=== PATIENT | male | born 1990 | race American Indian/Alaskan Native ===

== ENCOUNTER 2021-07-11 14:30 | Emergency (ER) | payer SELFPAY ==
--- NOTE | 2021-07-11 15:51 | Emergency Department Report ---
ED Chest Pain HPI - General Chief Complaint: Chest Pain Stated Complaint: CHEST PAIN Time Seen by Provider: 07/11/21 15:25 Source: patient Mode of arrival: Ambulatory Limitations: No Limitations - History of Present Illness Initial Comments: 31-year-old -Citizen Of The [place] obese male with a past medical history of hypertension presents to the ER today with complaints of substernal chest pain. 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 He described as a burning pain which has been constant. He reports since admission nausea and shortness of breath and productive cough. He states that he notices that when he walks pain seems to get worse, but seems to improve when he sits down or lay down. He reports no lower extremity swelling or calf pain. He denies any fever or chills. He denies any illicit drug use or alcohol abuse. He states that he smokes tobacco off and on. He denies any history of heart disease or known history of lung disease. He states that his grandma of an NE at 65 but she did have kidney disease. He denies any other family history of heart disease. He states that he has not had a Covid vaccine. MD Complaint: chest pain - Related Data Previous Rx's Medication Instructions Recorded Last Taken Type Famotidine [Pepcid] 20 mg PO BID #30 tablet 07/11/21 Unknown Rx Ondansetron [Zofran Odt] 4 mg PO Q8HR PRN #12 tab.rapdis 07/11/21 Unknown Rx Allergies Allergy/AdvReac Type Severity Reaction Status Date / Time No Known Allergies Allergy Verified 07/11/21 14:45 Heart Score - HEART Score History: Slightly suspicious EKG: Normal Age: < 45 Risk factors: > 3 risk factors or hx of atherosclerotic disease (Obesity, hypertension, tobacco use, grandma with heart disease (NE 65)) Troponin: < normal limit HEART Score: 2 - EKG Read Time Time EKG Completed: 14:47 EKG Read Time: 14:52 - Critical Actions Critical Actions: 0-3 pts:0.9-1.7%risk of adverse cardiac event.Candidate for discharge ED Review of Systems ROS: Stated complaint: CHEST PAIN Other details as noted in HPI Comment: All other systems reviewed and negative Constitutional: denies: chills, fever Respiratory: cough, shortness of breath. denies: wheezing Cardiovascular: chest pain Gastrointestinal: nausea ED Past Medical Hx - Past Medical History Previous Medical History?: Yes Hx Hypertension: Yes - Surgical History Past Surgical History?: No - Medications Home Medications: Home Medications Medication Instructions Recorded Confirmed Last Taken Type Famotidine [Pepcid] 20 mg PO BID #30 tablet 07/11/21 Unknown Rx Ondansetron [Zofran Odt] 4 mg PO Q8HR PRN #12 tab.rapdis 07/11/21 Unknown Rx ED Physical Exam - General Limitations: No Limitations General appearance: alert, in no apparent distress, obese - Head Head exam: Present: atraumatic, normocephalic, normal inspection - Neck Neck exam: Present: normal inspection, full ROM. Absent: meningismus - Respiratory Respiratory exam: Present: normal lung sounds bilaterally, chest wall tenderness (mild left parasternal area). Absent: respiratory distress, wheezes, rales, rhonchi - Cardiovascular Cardiovascular Exam: Present: regular rate, normal rhythm, normal heart sounds. Absent: bradycardia, tachycardia, systolic murmur, diastolic murmur - GI/Abdominal GI/Abdominal exam: Present: soft. Absent: distended, tenderness, guarding, rebound - Extremities Exam Extremities exam: Present: normal inspection, full ROM. Absent: normal capillary refill, pedal edema, calf tenderness - Neurological Exam Neurological exam: Present: alert, oriented X3, CN II-XII intact, normal gait - Psychiatric Psychiatric exam: Present: normal affect, normal mood - Skin Skin exam: Present: intact ED Course Vital Signs 07/11/21 07/11/21 14:45 20:08 Temperature 98.7 F 98.4 F Pulse Rate 100 H 68 Respiratory 16 18 Rate Blood Pressure 179/112 180/102 [Left] O2 Sat by Pulse 97 98 Oximetry ED Medical Decision Making - Lab Data Result diagrams: 07/11/21 16:10 07/11/21 16:10 - EKG Data EKG shows normal: sinus rhythm Rate: normal - EKG Data Interpretation: normal EKG - Radiology Data Radiology results: report reviewed Patient: RODNEY CHAUDHRY MR#: [id number] : 1990 Acct:[id number] Age/Sex: 31 / M ADM Date: 07/11/21 Loc: ED Attending Dr: Ordering Physician: MARQUEZ FLORES Date of Service: 07/11/21 Procedure(s): XR chest routine 2V Accession Number(s): [id number] cc: MARQUEZ FLORES Fluoro Time In Minutes: CHEST 2 VIEWS INDICATION / CLINICAL INFORMATION: Chest pain for one day. Hypertension. COMPARISON: None available. FINDINGS: SUPPORT DEVICES: None. HEART / MEDIASTINUM: The heart size and pulmonary vasculature are normal. The aorta is normal in caliber. LUNGS / PLEURA: No significant pulmonary or pleural abnormality. No pneumothorax. ADDITIONAL FINDINGS: No significant additional findings. IMPRESSION: No acute findings. Signer Name: Kyle Desai MD Signed: 07/11/2021 4:10 PM Workstation Name: [id number] Transcribed By: RT Dictated By: Kyle Desai MD Electronically Authenticated By: Kyle Desai MD Signed Date/Time: 07/11/211609 DD/ 09 TD/TT: - Medical Decision Making 2028: labs unremarkable including 2 neg trop CXR show no acute abnormality EKG was normal Repeat VS show elevated BP, but remainder VS normal. Patient reports that he takes lisinopril/HCTZ and he did take his medicines this morning. He states that he takes it every day. He states that his blood pressure is usually normal at home. Recommend that he continues to monitor his blood pressure at home and continue to take his blood pressure medication but if he notices that his blood pressure is starting to go up he will need to follow-up with a primary care doctor. At this time there is no indication for any additional testing or admission to the hospital. He is exam, diagnostic testing and current condition do not suggest that this patient is having acute myocardial infarction, significant arrhythmia, unstable angina, esophageal perforation, pulmonary embolism (PERC 0), aortic dissection, pneumothorax, severe pneumonia, sepsis or other significant pathology that would warrant further testing, continued ED treatment, admission or cardiology or other specialist consultation at this time. Patient given referral to primary care doctor as well as cardiology for further evaluation. He does describe the pain as a burning pain and it could be related to esophagitis or reflux and so in the meantime he will be given prescription for Pepcid and something to help with nausea. Food choices to help with reflux was discussed with patient. Patient expressed understanding agree with plan. He understands to return to the ER if anything worsens. Patient was stable at time of discharge. Critical care attestation.: If time is entered above; I have spent that time in minutes in the direct care of this critically ill patient, excluding procedure time. ED Disposition Clinical Impression: Nonspecific chest pain Disposition: HOME / SELF CARE / HOMELESS Is pt being admited?: No Does the pt Need Aspirin: No Condition: Stable Instructions: Nonspecific Chest Pain, Adult Additional Instructions: Recommend taking the Pepcid/Zofran as prescribed. Continue taking her blood pressure medication as prescribed. I do recommend close follow-up with primary care doctor for referral to cardiology for further evaluation. A high wire artist will also be listed on your discharge instructions recommend that you call to follow-up. Return to the ER if your symptoms changes or worsens in any way. Prescriptions: Famotidine [Pepcid] 20 mg PO BID #30 tablet Ondansetron [Zofran Odt] 4 mg PO Q8HR PRN #12 tab.rapdis PRN Reason: Nausea Referrals: ANJANA ANDREWS MD [Staff Physician] - 3-5 Days HERNÁN JOE MD [Staff Physician] - 3-5 Days (Art Psychotherapist) Time of Disposition: 19:39
--- NOTE | 2021-07-11 16:14 | XRay Report ---
CHEST 2 VIEWS INDICATION / CLINICAL INFORMATION: Chest pain for one day. Hypertension. COMPARISON: None available. FINDINGS: SUPPORT DEVICES: None. HEART / MEDIASTINUM: The heart size and pulmonary vasculature are normal. The aorta is normal in ryan marg[place]. LUNGS / PLEURA: No significant pulmonary or pleural abnormality. No pneumothorax. ADDITIONAL FINDINGS: No significant additional findings. IMPRESSION: No acute findings. Signer Name: Kyle Desai MD Signed: 07/11/2021 4:10 PM Workstation Name: [email or web address]
[2021-07-11] MEDS: ASPIRIN 325 MG TAB PO ONE (16:16)
[2021-07-11] MEDS: FAMOTIDINE 20 MG TAB PO ONE (16:16)
[2021-07-11 16:36] LABS: Basophils # (Auto) 0.1 K/mm3 (0.0-0.1); Basophils % (Auto) 0.6 % (0.0-1.8); Eosinophils # (Auto) 0.4 K/mm3 (0.0-0.4); Eosinophils % (Auto) 4.3 % (0.0-4.3); Hematocrit 49.3 % (35.5-45.6); Hemoglobin 16.1 gm/dl (11.8-15.2); Lymphocytes % (Auto) 21.1 % (13.4-35.0); Mean Corpuscular HGB Conc 33 % (32-34); Mean Corpuscular Volume 83 fl (84-94); Monocytes # (Auto) 0.7 K/mm3 (0.0-0.8); Monocytes % (Auto) 7.5 % (0.0-7.3); Platelet Count 342 K/mm3 (140-440); Red Blood Count 5.94 M/mm3 (3.65-5.03); Red Cell Distribution Width 14.1 % (13.2-15.2)
[2021-07-11 16:58] LABS: Alanine Aminotransferase 30 units/L (7-56); Albumin 4.7 g/dL (3.9-5); BUN/Creatinine Ratio 11; Blood Urea Nitrogen 9 mg/dL (9-20); Calcium 10.4 mg/dL (8.4-10.2); Hemolysis Index 39
[2021-07-11 20:09] VITALS: BP 180/102
--- NOTE | 2021-07-13 09:12 | Electrocardiograph Report ---
[facility] Test Date: 2021-07-11 Test Time: 14:47:53 Pat Name: RODNEY CHAUDHRY Department: Room: Gender: M Trailer Mechanic: HORTENSIA : 1990 Requested By: TOD YORK Order Number: [id number] Reading MD: Matias Tony Measurements Intervals [place] Rate: 99 P: 48 DE: 162 QRS: 1 QRSD: 113 T: 19 QT: 350 QTc: 450 Interpretive Statements Sinus rhythm No previous ECG available for comparison Electronically Signed On 07-13-2021 9:11:34 EST by Matias Tony
== END 2021-07-11 20:09 | disposition home or self-care (01) ==
LOC: ED 14:30
DX: R07.9 Chest pain, unspecified (principal); I10 Essential (primary) hypertension
CPT/HCPCS: 36415; 71046; 80053; 83690; 84484; 85025; 93005; 99284